=== PATIENT | female | born 1945 | race Caucasian/White ===

== ENCOUNTER 2020-03-17 09:21 | Observation (INO) | payer MEDICARE, OTHER ==
[~2020-03-17] VITALS: Ht 170.2 cm; Wt 112.2 kg
[~2020-03-17 09:21] MED LIST: ACTONEL150 MG PO; ALL DAY ALLERGY10 M2 PO; ANTIVERT 25MG T25 MG PO; AZITHROMYCIN250 MG PO; CARBAMAZEPINE100 M1 PO; CRESTOR40 MG PO; CYMBALTA60 MG PO; DECADRON6 MG PO; DILANTIN 100 M100 MG PO; DILANTIN100 MG PO; FOLIC ACID 1 MG1 MG PO; IBU600 MG PO; IMDUR ER TAB 3030 MG PO; K-DUR TAB 20 M20 MEQ PO; LASIX20 MG PO; NORVASC5 MG PO; PLAVIX 75 MG TA75 MG PO; PREDNISONE50 MG PO; PREVACID 30 MG30 MG PO; PROTONIX 40 MG40 M1 PO; PROVENTIL HFA6.7 GM INH; REQUIP2 MG PO; SYNTHROID137 MCG PO; TENORMIN 50 MG50 MG PO; TESSALON PERLE100 MG PO; VESICARE5 MG PO; VIBRAMYCIN 100100 MG PO; VITAMIN B-122500 MCG SL; VITAMIN D350 MCG PO; ZANTAC 150 MG150 MG PO; ZETIA10 MG PO; ZITHROMAX500 MG PO
[2020-03-17 11:12] LABS: BUN/CREATININE RATIO 10 (0-10)
[2020-03-17 11:44] LABS: HEMOGLOBIN 12.3 gm/dl (12.3-15.3); RED BLOOD COUNT 4.18 M/UL (4.00-5.10); WHITE BLOOD COUNT 5.2 K/UL (4.5-11.0)
[2020-03-17] MEDS ORDERED: CLARITIN 10MG T10 MG PO (14:51)
[2020-03-17] MEDS ORDERED: ZYRTEC10 MG PO (14:52)
[2020-03-17] MEDS ORDERED: TENORMIN25 MG PO (14:52)
[2020-03-17] MEDS ORDERED: ACETAMINOPHEN500 MG PO (14:54)
[2020-03-18 05:58] LABS: HEMOGLOBIN 11.7 gm/dl (12.3-15.3); RED BLOOD COUNT 3.89 M/UL (4.00-5.10); WHITE BLOOD COUNT 6.3 K/UL (4.5-11.0)
[2020-03-18 06:40] LABS: BUN/CREATININE RATIO 9 (0-10)
[2020-03-19] MEDS ORDERED: MECLIZINE HCL25 MG PO (14:36)
== END 2020-03-19 15:52 | disposition home or self-care (01) ==
LOC: ER1 09:21 → PROG CARE 12:38 → ZEROF 12:38 → PROG CARE 03-18 02:56
PROVIDERS: Emergency Medicine; Physician Assistant; ADMIT Internal Medicine
DX: R42 Dizziness and giddiness (principal); R26.89 Other abnormalities of gait and mobility; R74.8 Abnormal levels of other serum enzymes; I11.0 Hypertensive heart disease with heart failure; I50.32 Chronic diastolic (congestive) heart failure; E03.9 Hypothyroidism, unspecified; I25.10 Atherosclerotic heart disease of native coronary artery without angina pectoris; E78.5 Hyperlipidemia, unspecified; Z86.19 Personal history of other infectious and parasitic diseases; Z86.69 Personal history of other diseases of the nervous system and sense organs; Z86.73 Personal history of transient ischemic attack (TIA), and cerebral infarction without residual deficits; Z20.828 Contact with and (suspected) exposure to other viral communicable diseases; Z88.0 Allergy status to penicillin; Z88.2 Allergy status to sulfonamides; Z88.5 Allergy status to narcotic agent; Z88.6 Allergy status to analgesic agent; Z79.02 Long term (current) use of antithrombotics/antiplatelets; Z79.899 Other long term (current) drug therapy
CPT/HCPCS: 70450; 70551; 71045; 80048; 80053; 80156; 80185; 81001; 82550; 82553; 83874; 84484; 85025; 85610; 85730; 93005; 96374; 97162; 99285; G0378; J1885; J2405; J7030; U0002

== ENCOUNTER 2020-04-17 16:21 | Emergency (ER) | payer OTHER ==
[~2020-04-17 16:21] MED LIST changes: +ACETAMINOPHEN500 MG PO; +CLARITIN 10MG T10 MG PO; +MECLIZINE HCL25 MG PO; +TENORMIN25 MG PO; +ZYRTEC10 MG PO
== END 2020-04-17 19:35 | disposition left against medical advice (07) ==
LOC: ER1 16:21
DX: R05 Cough (principal); J02.9 Acute pharyngitis, unspecified; H92.09 Otalgia, unspecified ear; Z20.822 Contact with and (suspected) exposure to COVID-19; Z53.21 Procedure and treatment not carried out due to patient leaving prior to being seen by health care provider
CPT/HCPCS: 87081; 87880; U0002

== ENCOUNTER → 2020-06-02 | Outpatient (CLI) | payer OTHER | LOC: KOH-I 14:50 | DX: R59.1 Generalized enlarged lymph nodes (principal); M25.551 Pain in right hip; M79.605 Pain in left leg | CPT/HCPCS: 76536 ==

== ENCOUNTER → 2020-10-22 | Outpatient (CLI) | payer OTHER ==
[~2020-10-22] MED LIST changes: +CLARITIN10 M2 PO
== END ==
LOC: HEART 5 08:00
DX: R07.9 Chest pain, unspecified (principal); I10 Essential (primary) hypertension
CPT/HCPCS: 78452; 93306; A9502; J2785

== ENCOUNTER → 2020-11-12 | Outpatient (CLI) | payer OTHER ==
[~2020-11-12] MED LIST changes: -CLARITIN10 M2 PO
[2020-11-12 12:34] LABS: HEMOGLOBIN 11.8 gm/dl (12.3-15.3); RED BLOOD COUNT 3.98 M/UL (4.00-5.10); WHITE BLOOD COUNT 5.9 K/UL (4.5-11.0)
[2020-11-12 12:47] LABS: BUN/CREATININE RATIO 10 (0-10)
== END ==
LOC: LAB 10:54
PROVIDERS: Internal Medicine Interventional Cardiology
DX: I20.9 Angina pectoris, unspecified (principal); R07.9 Chest pain, unspecified; E78.00 Pure hypercholesterolemia, unspecified; I10 Essential (primary) hypertension; R06.02 Shortness of breath
CPT/HCPCS: 36415; 80048; 85025; 85610; 85730

== ENCOUNTER → 2020-11-24 | Outpatient (CLI) | payer OTHER ==
[~2020-11-24] MED LIST changes: +CLARITIN10 M2 PO
== END ==
LOC: CATH 07:05
DX: I20.8 Other forms of angina pectoris (principal); I11.0 Hypertensive heart disease with heart failure; I50.9 Heart failure, unspecified; E78.5 Hyperlipidemia, unspecified; I25.2 Old myocardial infarction; K21.9 Gastro-esophageal reflux disease without esophagitis; J44.9 Chronic obstructive pulmonary disease, unspecified; F32.9 Major depressive disorder, single episode, unspecified; M10.9 Gout, unspecified; E03.9 Hypothyroidism, unspecified; G25.81 Restless legs syndrome; G47.33 Obstructive sleep apnea (adult) (pediatric); E66.9 Obesity, unspecified; Z68.41 Body mass index [BMI] 40.0-44.9, adult; Z87.891 Personal history of nicotine dependence; Z88.0 Allergy status to penicillin; Z88.2 Allergy status to sulfonamides; Z88.5 Allergy status to narcotic agent; Z88.6 Allergy status to analgesic agent; Z88.8 Allergy status to other drugs, medicaments and biological substances; Z79.02 Long term (current) use of antithrombotics/antiplatelets; Z79.899 Other long term (current) drug therapy; Z20.822 Contact with and (suspected) exposure to COVID-19
CPT/HCPCS: 99152; 99153; C1769; C1887; C1894; J1644; J2250; J3010; J7030; Q9967; U0002

== ENCOUNTER → 2021-04-02 | Outpatient (CLI) | payer OTHER | LOC: RAD 18:11 | DX: M54.50 Low back pain, unspecified (principal); M47.816 Spondylosis without myelopathy or radiculopathy, lumbar region | CPT/HCPCS: 72100 ==

== ENCOUNTER → 2021-04-12 | Outpatient (CLI) | payer OTHER | LOC: KOH-I 10:54 | DX: R32 Unspecified urinary incontinence (principal); M51.36 Other intervertebral disc degeneration, lumbar region; M43.9 Deforming dorsopathy, unspecified | CPT/HCPCS: 72148 ==

== ENCOUNTER → 2021-06-07 | Outpatient (CLI) | payer OTHER | LOC: KOH-I 15:53 | DX: R51.9 Headache, unspecified (principal) | CPT/HCPCS: 70450 ==

== ENCOUNTER → 2021-06-29 | Outpatient (CLI) | payer OTHER | LOC: RAD 12:03 | DX: R06.09 Other forms of dyspnea (principal); I77.819 Aortic ectasia, unspecified site | CPT/HCPCS: 71046 ==

== ENCOUNTER → 2021-07-13 | Outpatient (CLI) | payer OTHER | LOC: CT 07:22 | DX: R91.1 Solitary pulmonary nodule (principal); M43.8X6 Other specified deforming dorsopathies, lumbar region; D18.09 Hemangioma of other sites; M47.812 Spondylosis without myelopathy or radiculopathy, cervical region; M89.9 Disorder of bone, unspecified; J98.11 Atelectasis; I70.0 Atherosclerosis of aorta; I25.10 Atherosclerotic heart disease of native coronary artery without angina pectoris | CPT/HCPCS: 71260; Q9967 ==

== ENCOUNTER 2021-09-29 16:32 | Emergency (ER) | payer OTHER ==
[2021-09-29 19:21] LABS: HEMOGLOBIN 12.4 gm/dl (12.3-15.3); RED BLOOD COUNT 4.19 M/UL (4.00-5.10); WHITE BLOOD COUNT 6.3 K/UL (4.5-11.0)
[2021-09-29 19:32] LABS: BUN/CREATININE RATIO 14 (0-10)
== END 2021-09-30 00:48 | disposition home or self-care (01) ==
LOC: ER1 16:32
PROVIDERS: Preventive Medicine Occupational Medicine
DX: R07.89 Other chest pain (principal); I11.0 Hypertensive heart disease with heart failure; I50.9 Heart failure, unspecified; Z20.822 Contact with and (suspected) exposure to COVID-19; Z86.73 Personal history of transient ischemic attack (TIA), and cerebral infarction without residual deficits
CPT/HCPCS: 0240U; 71045; 80053; 81001; 82550; 82553; 83690; 83880; 84484; 85025; 85652; 86140; 93005; 96361; 96374; 96375; 99285; C9113; J2405